=== PATIENT | female | born 1955 | race Caucasian/White ===

== ENCOUNTER → 2020-05-12 | Outpatient (CLI) | payer MEDICARE, MEDICAID ==
[~2020-05-12] MED LIST: Acetaminophen PO; Aspirin PO; Atorvastatin Calcium PO; BCL10T PO; DPAS20025 PO; FLUO20CA42 PO; GUAI100S4 PO; HYDR-3730 PO; INSU100I16 SQ; INSU100V16 SQ; Insulin Human Lispro SC; LEVE1U SQ; LEVO500T78 PO; LOVA20TA2 PO; LSNP20T PO; Lisinopril PO; METF-380 PO; METF500T4 PO; METO25TA2 PO; NF-SOLIF5T PO; PRCD5U PO; SERT50TA2 PO; SULF1TAB35 PO
--- NOTE | 2020-05-12 16:11 | Diagnostic Imaging Report ---
PROCEDURE: US Bilateral lower extremity arterial. TECHNIQUE: Multiple real-time grayscale images are obtained through both lower extremity arterial systems with color Doppler imaging and color Doppler spectral analysis. INDICATION: Peripheral arterial disease. FINDINGS: There is monophasic waveform involving the right common femoral artery. There is biphasic waveforms in the right superficial femoral artery. There is significant velocity elevation in the proximal right SFA reaching 355 cm/s. Monophasic waveforms in the popliteal artery on the right as well as the posterior tibial and dorsalis pedis artery on the right is noted. There is predominantly monophasic waveforms throughout the left lower extremity arterial system. Velocities are fairly symmetric throughout the femoropopliteal system. The dorsalis pedis on the left is not visualized. There are dampened velocities in the posterior tibial artery at the ankle measuring 11 cm/s. IMPRESSION: 1. Findings consistent with high-grade stenosis of the proximal right SFA. There is flow at the right ankle via the posterior tibial and dorsalis pedis. 2. Diffuse monophasic flow in left lower extremity arterial system. The left dorsalis pedis artery was not visualized. There is dampened flow within the left posterior tibial artery at the ankle. Dictated by: Dictated on workstation # [id number]
== END ==
LOC: RAD 12:45
PROVIDERS: ATTEND Nurse Practitioner Community Health
DX: I73.9 Peripheral vascular disease, unspecified (principal)
CPT/HCPCS: 93925